=== PATIENT | female | born 1995 | race Caucasian/White ===

== ENCOUNTER 2020-02-07 15:20 | Emergency (ER) | payer OTHER ==
[~2020-02-07] VITALS: Ht 170.2 cm; Wt 59.9 kg
--- NOTE | 2020-02-07 15:45 | NUR ---
Patient is AOx4, speaking in complete sentences, speech is clear. Patient is able to follow /comprehend directions. Gait is stable. No cardiovascular distress noted. Rate and rhythm are regular. No CP. No respiratory distress noted. Respirations even & unlabored with symmetrical chest rise. No adventitious sounds noted. Chief complaint: C/O COUGH Patient denies Fever/Chills. No recent travel. No pertinent medical history/NKDA. - ETOH/ -recreational drug use
--- NOTE | 2020-02-07 16:30 | NUR ---
Patient discharged to home in stable conditon. Written and verbal after care instructions given. Patient verbalizes understanding of instructions. AMBULATORY W/ STABLE GAIT ALL BELONGINGS W/ PT
[2020-02-07 16:41] VITALS: BP 116/72
== END 2020-02-07 16:41 | disposition home or self-care (01) ==
LOC: ER 15:20
DX: J06.9 Acute upper respiratory infection, unspecified (principal); F17.200 Nicotine dependence, unspecified, uncomplicated
CPT/HCPCS: 71045; 87400; A4663